=== PATIENT | female | born 1990 | race Caucasian/White ===

== ENCOUNTER → 2017-10-13 | Outpatient (CLI) | payer OTHER ==
[~2017-10-13] MED LIST: ADDERALL 10 MG10 MG PO; BACTRIM DS TAB1 EACH PO; CELEXA10 MG PO; CLONAZEPAM 0.50.5 M1; FLEXERIL; HYDROCHLOROTH12.5 M2 PO; HYDROCHLOROTHIA25 M2 PO; HYDROCODON-ACE1 EAC7 PO; LISINOPRIL5 MG PO; LOPRESSOR25 PO; NORCO 5-325 TA1 EACH; NORFLEX100 MG PO; PERCOCET 5-3251 EACH PO; PROPRANOLOL 1010 MG; SEROQUEL XR150 MG; TRINATE TABLET1 TAB PO; VISTARIL 25 MG25 M1; VISTARIL50 MG PO; ZESTRIL5 MG PO
--- NOTE | 2017-10-13 16:43 | 2DMMODE ---
[place] [address] 2 D/M-MODE ECHOCARDIOGRAM Name: DAVIN GREENRA Powers Room: [facility]#: [id number] Admission: 10/13/17 Attend Phys: Eben Palomares, Discharge: Date of : 89 Date of Service: 10/13/17 1643 Report #: [id number] THIS REPORT FOR: //name// APPROVED REPORT Study performed: 10/13/2017 15:01:28 EXAM: Comprehensive 2D, Doppler, and color-flow Echocardiogram Patient Location: Out-Patient Status: routine BSA: 1.66 HR: 82 bpm BP: 124/89 mmHg Other Information Study Quality: Excellent Indications Hypertension/HDD 2D Dimensions LVEF(%): 77.88 (>50%) IVSd: 9.66 (7-11mm) LVOT Diam: 20.66 (18-24mm) LVDd: 44.71 mm PWd: 9.29 (7-11mm) Ascending Ao: 23.38 (22-36mm) LVDs: 23.99 (25-40mm) Aortic Root: 25.38 mm Meza's LVEF: 77.88 % Volumes Left Atrial Volume (Systole) LA ESV Index: 18.90 mL/m2 Aortic Valve AoV Peak Walker.: 1.19 m/s AO Peak Gr.: 5.62 mmHg LVOT Max P.31 mmHg AO Mean Gr.: 2.82 mmHg LVOT Mean P.13 mmHg LVOT Max V: 1.15 m/s AO V2 VTI: 22.63 cm LVOT Mean V: 0.65 m/s OLVIN (VTI): 3.20 cm2 LVOT V1 VTI: 21.62 cm Mitral Valve E/A Ratio: 1.94 MV Decel. Time: 178.19 [place] [address] 2 D/M-MODE ECHOCARDIOGRAM Name: DAVIN GREENRA Powers Room: [facility]#: [id number] Admission: 10/13/17 Attend Phys: Eben Palomares, Discharge: Date of : 89 Date of Service: 10/13/17 1643 Report #: [id number] MV E Max Walker.: 1.04 m/s MV PHT: 51.67 ms MVA (PHT): 4.26 cm2 TDI E/Lateral E': 5.47 E/Medial E': 6.93 Medial E' Walker.: 0.15 m/s Lateral E' Walker.: 0.19 m/s Pulmonary Valve PV Peak Walker.: 1.10 m/s PV Peak Gr.: 4.84 mmHg Tricuspid Valve RAP Estimate: 5.00 mmHg TR Peak Gr.: 15.88 mmHg RVSP: 20.88 mmHg PA Pressure: 20.88 mmHg Left Ventricle The left ventricle is normal size. There is normal LV segmental wall motion. There is normal left ventricular wall thickness. Left ventricular systolic function is normal. The left ventricular ejection fraction is within the normal range. LVEF is 55-60%. The left ventricular diastolic function is normal. Right Ventricle The right ventricle is normal size. The right ventricular systolic function is normal. Atria The left atrium size is normal. The right atrium size is normal. Aortic Valve The aortic valve is normal in structure. No aortic regurgitation is present. There is no aortic valvular stenosis. Mitral Valve The mitral valve is normal in structure. There is no mitral valve regurgitation noted. No evidence of mitral valve stenosis. Tricuspid Valve The tricuspid valve is normal in structure. Trace tricuspid regurgitation. Pulmonic Valve The pulmonary valve is normal in structure. [place] [address] 2 D/M-MODE ECHOCARDIOGRAM Name: OLIVER GREEN Room: [facility]#: [id number] Admission: 10/13/17 Attend Phys: Eben Palomares, Discharge: Date of : 89 Date of Service: 10/13/17 1643 Report #: [id number] valvular regurgitation. Great Vessels The aortic root is normal in size. IVC is normal in size and collapses with >50% inspiration Pericardium There is no pericardial effusion. <Conclusion> Left ventricular systolic function is normal. The left ventricular ejection fraction is within the normal range. <ELECTRONICALLY SIGNED> By: Carlton Encinas MD, FACC 10/13/17 164 42 42 Carlton Encinas MD, FACC /INF
== END ==
LOC: M.CRD 14:56
DX: I10 Essential (primary) hypertension (principal)

== ENCOUNTER 2018-01-14 20:30 | Emergency (ER) | payer OTHER ==
[~2018-01-14] VITALS: Ht 162.6 cm; Wt 65.8 kg
[~2018-01-14 20:30] MED LIST changes: -HYDROCHLOROTH12.5 M2 PO; -LOPRESSOR25 PO; -VISTARIL50 MG PO
[2018-01-14] MEDS ORDERED: LOPRESSOR25 PO (20:47)
[2018-01-14] MEDS ORDERED: HYDROCHLOROTH12.5 M2 PO (20:48)
[2018-01-14 20:56] LABS: ABSOLUTE BASOPHILS 0.1 thou/uL (0.0-0.2); ABSOLUTE EOSINOPHILS 0.3 thou/uL (0.0-0.7); ABSOLUTE LYMPHOCYTES 3.9 thou/uL (0.8-5.3); ABSOLUTE MONOCYTES 0.7 thou/uL (0.0-1.2); ABSOLUTE NEUTROPHILS 6.8 thou/uL (1.6-8.1); BASOPHILS 0.9 %; EOSINOPHILS 2.3 %; HEMATOCRIT 44.9 % (37.0-47.0); HEMOGLOBIN 15.1 gm/dL (12.0-15.0); LYMPHOCYTES 33.2 %; MCH 31.2 pg (26.0-34.0); MCHC 33.8 g/dL (28.0-37.0); MCV 92.3 fL (80.0-100.0); MONOCYTES 5.9 %; MPV 10.7 fl. (7.2-11.1); NUCLEATED RBCS 0 /100WBC; PLATELET COUNT* 251 thou/uL (150-400); POLYS 57.7 %; RBC 4.86 mil/uL (4.20-5.00); RDW-CV 12.9 % (10.5-14.5); WBC 11.8 thou/uL (4.0-11.0)
[2018-01-14 21:09] LABS: ALBUMIN 4.9 g/dL (3.4-5.0); ALKALINE PHOSPHATASE 68 U/L (46-116); ANION GAP 7 mmol/L (7-16); BUN 9 mg/dL (7-18); CALCIUM 10.1 mg/dL (8.5-10.1); CHLORIDE 100 mmol/L (98-107); CO2 28 mmol/L (21-32); CREATININE 0.8 mg/dL (0.6-1.3); GLUCOSE 85 mg/dL (70-99); LIPASE 141 U/L (73-393); MAGNESIUM 2.2 mg/dL (1.8-2.4); SGOT 18 U/L (15-37); SGPT 32 U/L (30-65); SODIUM 135 mmol/L (136-145); TOTAL BILIRUBIN 0.7 mg/dL (<0.1-1.0); TROPONIN-I LEVEL <0.06 ng/mL (<0.06)
[2018-01-14 21:46] LABS: URINE BILIRUBIN NEGATIVE (Negative); URINE BLOOD NEGATIVE (Negative); URINE CLARITY CLEAR; URINE COLOR YELLOW; URINE GLUCOSE-RANDOM NEGATIVE (Negative); URINE KETONES NEGATIVE (Negative); URINE LEUKOCYTES NEGATIVE (Negative); URINE NITRITE NEGATIVE (Negative); URINE PROTEIN NEGATIVE (Negative); URINE UROBILINOGEN 0.2 E.U./dl (0.2-1.0)
[2018-01-14 21:53] LABS: AMP/METHAMP POSITIVE (Negative); BARBITURATES Negative (Negative); BENZODIAZEPINES Negative (Negative); COCAINE Negative (Negative); METHADONE Negative (Negative); OPIATES POSITIVE (Negative); PCP Negative (Negative); THC Negative (Negative)
[2018-01-14] MEDS ORDERED: VISTARIL50 MG PO (23:55)
[2018-01-15 00:31] VITALS: BP 119/75
--- NOTE | 2018-01-15 12:06 | EKG ---
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1990 Requested By: Florin Cameron Order Number: [id number] MD: Carlton Encinas Measurements Intervals [place] Rate: 90 P: 64 IL: 114 QRS: 72 QRSD: 97 T: -19 QT: 364 QTc: 446 Interpretive Statements Sinus rhythm Borderline short IL interval Borderline repolarization abnormality Compared to ECG 09/10/2015 22:13:12 no change Electronically Signed On 01-15-2018 12:06:20 CDT by Carlton Encinas [email or web address] <ELECTRONICALLY SIGNED> By: Carlton Encinas MD, [facility] 01/15/18 1206 35 Calrton Encinas MD, FACC /EPI
--- NOTE | 2018-01-15 12:10 | EKG ---
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
== END 2018-01-15 00:25 | disposition home or self-care (01) ==
LOC: M.ERS 20:30
PROVIDERS: Emergency Medicine Emergency Medical Services
DX: I10 Essential (primary) hypertension (principal); F41.9 Anxiety disorder, unspecified; F17.210 Nicotine dependence, cigarettes, uncomplicated; Z88.0 Allergy status to penicillin

== ENCOUNTER → 2018-04-07 | Outpatient (CLI) | payer OTHER ==
[~2018-04-07] MED LIST changes: +HYDROCHLOROTH12.5 M2 PO; +LOPRESSOR25 PO; +VISTARIL50 MG PO
== END ==
LOC: M.ULTRA 10:30
DX: E04.9 Nontoxic goiter, unspecified (principal); R63.5 Abnormal weight gain

== ENCOUNTER → 2018-04-08 | Outpatient (CLI) | payer OTHER ==
[2018-04-08 11:22] LABS: ABSOLUTE BASOPHILS 0.1 thou/uL (0.0-0.2); ABSOLUTE EOSINOPHILS 0.4 thou/uL (0.0-0.7); ABSOLUTE LYMPHOCYTES 2.9 thou/uL (0.8-5.3); ABSOLUTE MONOCYTES 0.5 thou/uL (0.0-1.2); EOSINOPHILS 5.4 %; HEMATOCRIT 41.3 % (37.0-47.0); LYMPHOCYTES 36.7 %; MCH 31.4 pg (26.0-34.0); MCV 92.5 fL (80.0-100.0); MONOCYTES 6.8 %; NUCLEATED RBCS 0 /100WBC; PLATELET COUNT* 316 thou/uL (150-400); POLYS 50.1 %; RBC 4.47 mil/uL (4.20-5.00)
[2018-04-08 11:34] LABS: ALBUMIN 3.8 g/dL (3.4-5.0); ALKALINE PHOSPHATASE 67 U/L (46-116); ANION GAP 9 mmol/L (7-16); BUN 21 mg/dL (7-18); CALCIUM 8.9 mg/dL (8.5-10.1); CHLORIDE 102 mmol/L (98-107); CHOLESTEROL 169 mg/dL (<200); CO2 27 mmol/L (21-32); GLUCOSE 81 mg/dL (70-99); HDL CHOLESTEROL 52 mg/dL (>40); LDL CHOLESTEROL 92 mg/dL (<100); POTASSIUM 3.9 mmol/L (3.5-5.1); SGOT 14 U/L (15-37); SGPT 33 U/L (30-65); SODIUM 138 mmol/L (136-145); TC:HDL 3.3 Ratio (Not establshd); TOTAL BILIRUBIN 0.5 mg/dL (<0.1-1.0); TOTAL PROTEIN 7.2 g/dL (6.4-8.2); TRIGLYCERIDE 129 mg/dL (<150); VLDL 26 mg/dL (<40)
[2018-04-08 11:35] LABS: SERUM ASSESSMENT Clear
[2018-04-08 21:12] LABS: GLYCOHEMOGLOBIN (HGB A1C) 5.2 % (4.8-5.6)
== END ==
LOC: M.LAB 10:58
PROVIDERS: Nurse Practitioner Family
DX: Z00.01 Encounter for general adult medical examination with abnormal findings (principal); I10 Essential (primary) hypertension; F39 Unspecified mood [affective] disorder; F33.1 Major depressive disorder, recurrent, moderate; L65.9 Nonscarring hair loss, unspecified; E04.9 Nontoxic goiter, unspecified

== ENCOUNTER → 2020-03-04 | Outpatient (CLI) | payer OTHER ==
[2020-03-04 16:47] LABS: ALBUMIN 4.3 g/dL (3.4-5.0); ALKALINE PHOSPHATASE 69 U/L (46-116); ANION GAP 9 mmol/L (7-16); BUN 16 mg/dL (7-18); CALCIUM 9.3 mg/dL (8.5-10.1); CHLORIDE 100 mmol/L (98-107); CHOLESTEROL 187 mg/dL (<200); CO2 28 mmol/L (21-32); CREATININE 0.9 mg/dL (0.6-1.3); GLUCOSE 82 mg/dL (70-99); HDL CHOLESTEROL 47 mg/dL (>40); LDL CHOLESTEROL 114 mg/dL (<100); POTASSIUM 3.6 mmol/L (3.5-5.1); SERUM ASSESSMENT Clear; SGOT 17 U/L (15-37); SGPT 27 U/L (30-65); SODIUM 137 mmol/L (136-145); TOTAL BILIRUBIN 0.3 mg/dL (<0.1-1.0); TOTAL PROTEIN 7.8 g/dL (6.4-8.2); TRIGLYCERIDE 133 mg/dL (<150); VLDL 27 mg/dL (<40)
== END ==
LOC: M.LAB 16:18
PROVIDERS: ATTEND Nurse Practitioner
DX: Z13.220 Encounter for screening for lipoid disorders (principal); I10 Essential (primary) hypertension